=== PATIENT | female | born 1955 | race Caucasian/White ===

== ENCOUNTER 2017-10-23 09:28 | Emergency (ER) | payer BC ==
[~2017-10-23] VITALS: Ht 167.6 cm; Wt 95.0 kg
[~2017-10-23 09:28] MED LIST: ASPI-535 PO; CHOL100062 PO; DIGO125T PO; FURO-110 PO; OMEP20CA16 PO; POTA20TA96 PO; RIVA20TA PO; TADA20TA33 PO; UBID100C24 PO
[2017-10-23 09:33] VITALS: Ht 167.6 cm; Wt 95.0 kg
[2017-10-23] MEDS ORDERED: ACETAMINOPHEN 500 MG TAB PO STA (10:27)
--- NOTE | 2017-10-23 10:49 | RADRPT ---
AMENDMENT: 10/23/2017 10:57:21 AM Cecil Olivarez Md Call report was made to Dr. Dennis on 10/23/2017 10:57:12 AM PROCEDURE: Chest x-ray CLINICAL INDICATION: Syncope TECHNIQUE: Chest single view COMPARISON: None FINDINGS: There is stable mild cardiomegaly. There is enlargement of the central pulmonary arteries suggesting pulmonary arterial hypertension. This curvilinear density along the left paraspinal region early. T his may represent increasing tortuosity of the thoracic aorta versus adenopathy. Chest CT is recomme nded for further evaluation. Bony vessels are normal in caliber. Lungs clear. Costophrenic angles ar e sharp. Bony thorax is unremarkable. IMPRESSION: 1. Stable moderate cardiomegaly. 2. Curvilinear left paraspinal density may represent progressive tortuosity/dilatation of the thora cic aorta versus adenopathy. Chest CT is recommended for further evaluation. 3. Enlarged central pulmonary arteries suggesting pulmonary arterial hypertension RPTAT: .Cecil Olivarez MD, Date Time Electronically viewed and signed by .Cecil Olivarez MD, on 10/23/2017 10:57 .W/
[2017-10-23 11:07] LABS: BASOPHIL # 0.1 10^3/ul (0.0-0.1); BASOPHILS % 1.1 % (0.0-2.0); EOSINOPHILS # 0.3 10^3/ul (0.0-0.5); EOSINOPHILS % 2.9 % (0.0-7.0); HEMATOCRIT 45.7 % (37.0-47.0); LYMPHOCYTES # 2.4 10^3/ul (0.8-2.9); LYMPHOCYTES % 24.6 % (15.0-51.0); MEAN CORPUSCULAR HEMOGLOBIN 30.4 pg (29.0-33.0); MEAN CORPUSCULAR VOLUME 86.9 fl (82.0-101.0); MONOCYTES % 10.5 % (0.0-11.0); NEUTROPHIL # 5.8 10^3/ul (1.6-7.5); NEUTROPHILS % 60.7 % (39.0-77.0); PLATELET COUNT 334 10^3/UL (140-415); RED BLOOD COUNT 5.26 10^6/ul (4.20-5.40); RED CELL DISTRIBUTION WIDTH 15.4 % (11.5-14.5); WHITE BLOOD COUNT 9.6 10^3/ul (4.8-10.8)
[2017-10-23 11:27] LABS: ANION GAP 13 (8-16); BLOOD UREA NITROGEN 17 mg/dl (7-20); CALCIUM 9.4 mg/dl (8.4-10.2); CARBON DIOXIDE 27 mmol/L (21-31); CHLORIDE 107 mmol/L (97-110); CREATININE 0.64 mg/dl (0.44-1.00); GLUCOSE 93 mg/dl (70-220); SODIUM 143 mmol/L (135-144)
--- NOTE | 2017-10-23 11:29 | RADRPT ---
PROCEDURE: CT Brain without contrast. CLINICAL INDICATION: Syncope. TECHNIQUE: A CT of the brain without contrast was performed utilizing axial sections from the skul l base through the vertex. One or more the following does reduction techniques were utilized: Automa gabriella exposure control, adjustment of the mA/ or kV according to patient's size, or use of iterative r econstruction technique. Total exam CTDIvol is 42.69 MGy and DLP is 720.23 mGy-cm. DICOM images are available. COMPARISON: None available. FINDINGS: The ventricles and sulci are mildly prominent indicative of volume loss. There is no intracranial h emorrhage, mass effect or midline shift. No abnormal intra-axial or extra-axial fluid collections a re seen. The sabillon/white matter differentiation is well preserved. There are mild foci of hypoattenuation in the white matter, which are nonspecific in etiology but li jez reflect chronic small vessel ischemic changes. There are mild intracranial vascular calcificati ons consistent with atherosclerosis. The visualized paranasal sinuses are essentially clear. IMPRESSION: 1. No acute intracranial hemorrhage, transcortical infarction or mass effect. 2. Mild intracranial atherosclerosis and mild chronic small vessel ischemic changes. 3. Mild generalized cerebral volume loss. RPTAT: HFN .Kyree Prince MD, Date Time Electronically viewed and signed by .Kyree Prince MD, MD on 10/23/2017 11:28 .N/
[2017-10-23 11:45] LABS: TROPONIN-I < 0.012 ng/ml (0.00-0.12)
--- NOTE | 2017-10-23 12:42 | ERD ---
ER Documentation Chief Complaint Chief Complaint Complains of a syncopal episode this am HPI This is a very pleasant 62-year-old female who presents with a syncopal episode. The patient states that she was blow drying her hair and standing upright. She started to have a prodrome where her vision closed and she felt like she might pass out and she started to set herself down to the ground and then collapsed. The patient denies any significant head pain, no nausea or vomiting, no chest pain or significant shortness of breath. She does have remote history of pulmonary embolism and takes anticoagulants, Xeralto. She denied any prodrome of chest pain, shortness of breath, headache. No recent fevers or chills. She states compliance with her medications and has a history of cor pulmonale, pulmonary hypertension. ROS All systems reviewed and are negative except as per history of present illness. Medications Home Meds Reported Medications Cholecalciferol* (Vitamin D3*) Unknown Strength Tablet, PO DAILY, TAB 07/20/15 Ubidecarenone (Coq-10) Unknown Strength Capsule, PO 07/20/15 Potassium Chloride* (Potassium Chloride*) Unknown Strength Tablet.er, PO BID, TAB.SA 07/20/15 Rivaroxaban* (Xarelto*) 20 Mg Tablet, 20 MG PO DAILY, TAB 07/20/15 Omeprazole* (Omeprazole*) 20 Mg Capsule.dr, 20 MG PO DAILY, CAP 07/20/15 Aspirin Ec (Aspir 81) 81 Mg Tablet.dr, 81 MG PO DAILY, TAB 07/20/15 Digoxin* (Digoxin*) 0.125 Mg Tab, 0.125 MG PO DAILY, TAB 07/20/15 Furosemide* (Lasix*) 20 Mg Tablet, 20 MG PO BID, TAB 07/20/15 Tadalafil (Adcirca) 20 Mg Tablet, 20 MG PO BID 07/20/15 Allergies Allergies: Coded Allergies: No Known Drug Allergies (Verified Allergy, Unknown, 07/20/15) PMhx/Soc History of Surgery: Yes (splenectomy, cholecystectomy, c/section, tubal ligation, tonsillectomy, ) Anesthesia Reaction: No Hx Neurological Disorder: No Hx Respiratory Disorders: Yes (pulmonary embolus 5 years ago) Hx Cardiac Disorders: No Hx Psychiatric Problems: No Hx Miscellaneous Medical Probl: Yes Hx Alcohol Use: Yes (rarely) Hx Substance Use: No Hx Tobacco Use: No Smoking Status: Never smoker FmHx Family History: No diabetes Physical Exam Vitals Vital Signs Date Time Temp Pulse Resp B/P Pulse Ox O2 Delivery O2 Flow Rate FiO2 10/23/17 09:33 98.3 71 20 112/63 92 Physical Exam General: Well developed, well nourished, no acute distress Head: Normocephalic, atraumatic. Eyes: Pupils equally reactive, EOM intact ENT: Moist mucous membranes Neck: Supple, no lymphadenopathy, No midline tenderness, deformities, step-offs to the cervical spine, full active and passive range of motion without midline pain. Respiratory: Lungs clear bilaterally, no distress Cardiovascular: RRR, no murmurs, rubs, or gallops Abdominal: Soft, non-tender, non-distended, no peritoneal signs : Deferred MSK: No edema, no unilateral swelling, 5/5 strength Neurologic: Alert and oriented, moving all extremities, normal speech, no focal weakness, no cerebellar signs Skin: No rash Psych: Normal mood Result Diagram: 10/23/17 1054 10/23/17 1054 Results 24 hrs Laboratory Tests Test 10/23/17 10:54 White Blood Count 9.610^3/ul Red Blood Count 5.2610^6/ul Hemoglobin 16.0g/dl Hematocrit 45.7% Mean Corpuscular Volume 86.9fl Mean Corpuscular Hemoglobin 30.4pg Mean Corpuscular Hemoglobin Concent 35.0g/dl Red Cell Distribution Width 15.4% Platelet Count 87771^3/UL Mean Platelet Volume 11.0fl Neutrophils % 60.7% Lymphocytes % 24.6% Monocytes % 10.5% Eosinophils % 2.9% Basophils % 1.1% Nucleated Red Blood Cells % 0.0/100WBC Neutrophils # 5.810^3/ul Lymphocytes # 2.410^3/ul Monocytes # 1.010^3/ul Eosinophils # 0.310^3/ul Basophils # 0.110^3/ul Nucleated Red Blood Cells # 0.010^3/ul Sodium Level 143mmol/L Potassium Level 4.0mmol/L Chloride Level 107mmol/L Carbon Dioxide Level 27mmol/L Anion Gap 13 Blood Urea Nitrogen 17mg/dl Creatinine 0.64mg/dl Glucose Level 93mg/dl Calcium Level 9.4mg/dl Troponin I < 0.012ng/ml Current Medications Medications (Trade) Dose Ordered Sig/Justice Route PRN Reason Start Time Stop Time Status Last Admin Dose Admin Acetaminophen (Tylenol Tab) 1,000 mg ONCE STAT PO 10/23/17 10:27 10/23/17 10:28 DC 10/23/17 11:33 Procedures/MDM EKG, MONITORS, & DIAGNOSTIC IMAGING: EKG: I reviewed and interpreted a 12-lead EKG. Rhythm: Normal sinus rhythm Ectopy: None Intervals: Bifascicular block consistent with old ST segments: No elevations or depressions T waves: No contiguous inversions Chest x-ray: I reviewed and interpreted a 1 view of the chest Mediastinum: No enlargement Cardiac silhouette: No cardiomegaly Airspace: Mild interstitial process without focal infiltrates or pneumothorax Bones: No evidence of fracture CT brain: No evidence of acute intracranial process CTPA: [] LAB INTERPRETATION: [] MEDICAL DECISION MAKING: The patient presents with a syncopal episode that is described very consistent with likely vasovagal versus orthostatic syncope. The patient has had a history of this in the past. She has a history of cor pulmonale and is on medications that can cause transient with a stasis versus hypotension. She had no prodrome of chest pain or shortness of breath to suggest cardiopulmonary process such as pulmonary embolism or dissection. No headache to suggest subarachnoid hemorrhage. However the patient did collapse to the ground and she does take anticoagulants prompting CT imaging of the brain. The patient does not meet high-risk criteria and based on NEXUS cervical spine criteria there is no indication for cervical spine imaging at this time. The patient does have a history of pulmonary embolism and the radiologist was concerned for possible findings of either mediastinal lymphadenopathy versus pulmonary hypertension. While this would fit with the patient's history he is concerned that pulmonary embolism could present with this image quality. He recommends CTPA which I believe is reasonable. I spoke to the patient's inspector type, Dr. Aviles who agrees with plan of care and is ok with discharge if negative w/u in ED. ER COURSE: [] I kept the patient and/or family informed of laboratory and diagnostic imaging results throughout the emergency room course. DISPOSITION PLAN: [] CONSULTATION: [] YING FOWLER MD Oct 23, 2017 12:41
[2017-10-23] MEDS ORDERED: IOHEXOL 100 ML ONE (13:35)
[2017-10-23] MEDS ORDERED: IOHEXOL 350MG/ML 50 ML BTL ONE (13:35)
[2017-10-23] MEDS ORDERED: SOD CHLORIDE 0.9% 100 ML ONE (13:35)
--- NOTE | 2017-10-23 14:12 | RADRPT ---
PROCEDURE: CTA Chest and pulmonary angiogram. CLINICAL INDICATION: Chest pain and shortness of breath. Rule out pulmonary emboli. TECHNIQUE: CT scan of the chest and CT pulmonary angiogram was performed on a multidetector high-r esolution CT scanner. High-resolution thin slice coronal and sagittal imaging was obtained from the axial source images. 3-D volumetric rendered post processing was not performed. The patient was e xamined following the uncomplicated intravenous administration of 125 cc of Omnipaque-300 E. The celian ges were reviewed on a PACS workstation. The total exam CTDI equals 45 mGy, and the total exam DLP e quals 614 mGy-cm. One or more of the following dose reduction techniques were used: Automated exposure control. Adjustment of the mA and/or kV according to patient size. Use of iterative reconstruction technique. DICOM images are available. COMPARISON: No priors for comparison. FINDINGS: CT chest: The trachea is midline. Thyroid gland is unremarkable. Several shoddy axillary lymph nodes are noted . No significant mediastinal or hilar lymphadenopathy. Atherosclerotic calcification of the aorta is identified. No evidence of aneurysmal dilatation or di ssection. The pulmonary arterial trunk is markedly dilated measuring up to 4.0 cm. No evidence of ab normal filling defects within the main pulmonary artery and its segmental branches. The heart size i s enlarged. No significant pericardial effusion. There is prominence of the pulmonary vasculature Right upper lobe ground-glass opacity is identified. There is bilateral lower lobe and perihilar luz und-glass opacities. No focal consolidation or pleural effusions. There is a 8.0 mm right lower lobe nodule. The visualized upper abdominal organs demonstrates post cholecystectomy clips. There is dilatation o f the common bile duct, likely within normal limits, post cholecystectomy. The remaining upper abdom inal organs appear to be within limits. The visualized osseous structures demonstrates multilevel degenerative disease of the spine. IMPRESSION: 1. No evidence of acute pulmonary emboli. No evidence of aortic aneurysm or dissection. 2. Cardiomegaly and marked pulmonary arterial hypertension. There is prominence of the pulmonary vas culature and bilateral perihilar and lower lobe ground-glass opacities, probably edema. 3. No focal consolidation. No evidence of pleural effusions. 4. Right lower lobe, nodule measuring 8.0 mm. Recommend follow-up and 6-12 months. RPTAT: AAPP José Luis Levy Physician Date Time Electronically viewed and signed by José Luis Levy Physician on 10/23/2017 14:12 FRANCISCO/
[2017-10-23 14:45] VITALS: BP 141/64; PULSE 63; RESP 20; TEMP 98.2
== END 2017-10-23 14:45 | disposition home or self-care (01) ==
LOC: E/R 09:28
DX: R55 Syncope and collapse (principal); Z79.82 Long term (current) use of aspirin
CPT/HCPCS: 36415; 70450; 71010; 71275; 80048; 84484; 85025; 93005; 99285; Q9967